=== PATIENT | male | born 1935 | race Caucasian/White ===

== ENCOUNTER 2019-01-04 14:21 | Emergency (ER) | payer OTHER ==
[2019-01-04 15:20] LABS: Absolute Lymphocytes (CBC) 0.5 K/uL (0.7-4.9); Absolute Monocytes 0.7 K/uL (0.1-1.3); Absolute Neutrophil 2.8 K/uL (1.8-8.0); Basophils % 1.2 % (0-1.3); Eosinophils % 3.7 % (0-4.4); Hematocrit 31.4 % (39.6-49.0); Lymphocytes % 12.9 % (15.3-44.8); MPV 7.6 fL (7.6-11.3); Monocytes % 15.7 % (3.3-12.3); RBC Red Blood Cell Count 3.19 M/uL (4.33-5.43)
[2019-01-04 15:33] LABS: BUN Blood Urea Nitrogen 29 mg/dL (7-18); Bicarbonate 26 mmol/L (21-32); Glucose Level 91 mg/dL (74-106); NT PRO-BNP 598 pg/mL (<450); Potassium 4.2 mmol/L (3.5-5.1); Sodium Level 141 mmol/L (136-145); Troponin (Emerg Dept Use Only) < 0.02 ng/mL (0.0-0.045)
--- NOTE | 2019-01-04 15:34 | RAD REPORT ---
EXAM DESCRIPTION: [place] Single View01/04/2019 3:20 pm CLINICAL HISTORY: Shortness of breath COMPARISON: 2013 FINDINGS: Haziness of the left base is unchanged and likely is chronic. Lungs appear clear of acute infiltrate. The heart is borderline enlarged IMPRESSION: No acute abnormalities displayed
--- NOTE | 2019-01-04 15:57 | RAD REPORT ---
EXAM DESCRIPTION: CT - Head Brain Wo Cont - 01/04/2019 3:22 pm CLINICAL HISTORY: Headache COMPARISON: 2017 TECHNIQUE: Computed axial tomography of the head was obtained. IV contrast was not requested. All CT scans are performed using dose optimization technique as appropriate and may include automated exposure control or mA/KV adjustment according to patient size. FINDINGS: An intracranial bleed is not seen . The ventricles are normal in caliber. No extra-axial fluid collection is noted. Fluid within the sinuses/ mastoids is not seen. IMPRESSION: No acute intracranial abnormality is seen. If patient's symptoms persist MRI of the bra in would be recommended.
[2019-01-04] MEDS ORDERED: levoFLOXacin 500 MG TAB ONE (17:13)
--- NOTE | 2019-01-04 17:14 | EKG ---
Test Date: 2019-01-04 Test Time: 14:54:49 Radio News Writer: AG/S MEASUREMENT RESULTS: Intervals: Rate: 68 NV: 152 QRSD: 142 QT: 446 QTc: 474 [place]: P: 24 NV: 152 QRS: -28 T: 52 INTERPRETIVE STATEMENTS: Normal sinus rhythm Right bundle branch block Abnormal ECG Compared to ECG 09/18/2017 08:05:55 No significant changes Electronically Signed On 01-04-19 17:12:51 CDT by Jon Graves
--- NOTE | 2019-01-04 17:18 | ER ---
Nurse's Notes [facility] Name: Paul Iglesias Age: 83 yrs Sex: Male : 1935 Arrival Date: 01/04/2019 Time: 14:22 Bed 23 Private MD: Diagnosis: Near syncope;Bronchitis, not specified as acute or chronic;Dehydration Presentation: 01/04 14:26 Presenting complaint: Patient states: "I drank a big thing of tea before going outside and it turned my whole body hot and my head hot and I can't even see straight. I feel weak and I might pass out" Reports being sick the past week. Transition of care: patient was not received from another setting of care. Onset of symptoms was January 04, 2019. Care prior to arrival: None. 14:26 Method Of Arrival: Wheelchair sv 14:26 Acuity: HERO 3 sv 14:43 Risk Assessment: Do you want to hurt yourself or someone else? Patient reports no ca1 desire to harm self or others. Initial Sepsis Screen: Does the patient meet any 2 criteria? No. Patient's initial sepsis screen is negative. Does the patient have a suspected source of infection? No. Patient's initial sepsis screen is negative. Triage Assessment: 14:43 General: Appears in no apparent distress. comfortable, Behavior is calm, cooperative, ca1 appropriate for age. Historical: - Allergies: 14:27 No Known Drug Allergies; sv - PMHx: 14:27 Anxiety; High Cholesterol; Hypertension; Hypothyroidism; sv - PSHx: 14:27 Appendectomy; spinal surgery "i had 13 spurs removed"; sv - Immunization history:: Flu vaccine is up to date. - Social history:: Smoking status: Patient/guardian denies using tobacco. - Ebola Screening: : No symptoms or risks identified at this time. - Family history:: not pertinent. - Hospitalizations: : No recent hospitalization is reported. Screenin:39 Abuse screen: Denies threats or abuse. Denies injuries from another. Nutritional ca1 screening: No deficits noted. Tuberculosis screening: No symptoms or risk factors identified. Fall Risk Ambulatory Aid- Crutches/Cane/Walker (15 pts). Assessment: 14:39 General: Appears in no apparent distress. comfortable, Behavior is calm, cooperative, ca1 appropriate for age. General: Reports feeling ill for for the past week. Pain: Denies pain. Neuro: Level of Consciousness is awake, alert, obeys commands, Oriented to person, place, time, situation, Career Specialist are equal bilaterally Moves all extremities. Gait is unsteady, Speech is normal, Facial symmetry appears normal, Pupils are PERRLA, Reports dizziness, since 3o minutes ago. Cardiovascular: Heart tones S1 S2 present Capillary refill < 3 seconds Patient's skin is warm and dry. Respiratory: Reports cough that is productive, since a week ago Airway is patent Respiratory effort is even, unlabored, Respiratory pattern is regular, symmetrical, Breath sounds are clear bilaterally. GI: Abdomen is round non-distended, Bowel sounds present X 4 quads. Abd is soft and non tender X 4 quads. : No deficits noted. No signs and/or symptoms were reported regarding the genitourinary system. EENT: Reports nasal congestion nasal discharge that is watery since since a week ago. Derm: Skin is intact, is healthy with good turgor, Skin is pink, warm \\T\\ dry. Musculoskeletal: Circulation, motion, and sensation intact. Capillary refill < 3 seconds. 15:54 Reassessment: Patient appears in no apparent distress at this time. Patient and/or ca1 family updated on plan of care and expected duration. Pain level reassessed. Patient is alert, oriented x 3, equal unlabored respirations, skin warm/dry/pink. 16:41 Reassessment: Patient appears in no apparent distress at this time. Patient and/or ca1 family updated on plan of care and expected duration. Pain level reassessed. Patient is alert, oriented x 3, equal unlabored respirations, skin warm/dry/pink. 16:50 Reassessment: Dr. Mcginnis at bedside. ca1 17:14 Reassessment: Patient appears in no apparent distress at this time. Patient is alert, ca1 oriented x 3, equal unlabored respirations, skin warm/dry/pink. Vital Signs: 14:27 BP 132 / 55; Pulse 76; Resp 24; Temp 97.8(O); Pulse Ox 98% ; Weight 109.77 kg; Height 6 sv ft. 0 in. (182.88 cm); Pain 0/10; 15:35 BP 121 / 67; Pulse 71; Resp 21 S; Pulse Ox 100% on 2 lpm NC; ca1 16:41 BP 121 / 63; Pulse 55; Resp 16 S; Pulse Ox 100% on 2 lpm NC; ca1 17:14 BP 128 / 63; Pulse 53; Resp 19; Pulse Ox 100% on R/A; ca1 14:27 Body Mass Index 32.82 (109.77 kg, 182.88 cm) sv ED Course: 14:22 Patient arrived in ED. tw3 14:27 Triage completed. sv 14:28 Arm band placed on. sv 14:32 Carla Garrison RN is Primary Nurse. ca1 14:39 Patient has correct armband on for positive identification. Placed in gown. Bed in low ca1 position. Call light in reach. Side rails up X 1. radiological technologist on. Pulse ox on. NIBP on. Warm blanket given. 14:45 Hari Mcginnis MD is Attending Physician. rn 15:03 Inserted saline lock: 20 gauge in right antecubital area, using aseptic technique. ca1 Blood collected. 15:16 X-ray completed. Portable x-ray completed in exam room. Patient tolerated procedure mh1 well. 15:17 XRAY Chest (1 view) In Process Unspecified. EDMS 15:22 CT Head Brain wo Cont In Process Unspecified. EDMS 15:43 EKG done, by health and safety technician. reviewed by Hari Mcginnis MD. sm3 17:35 No provider procedures requiring assistance completed. IV discontinued, intact, ca1 bleeding controlled, No redness/swelling at site. Pressure dressing applied. Administered Medications: 17:03 Drug: LevaQUIN 500 mg Route: PO; ca1 17:30 Follow up: Response: No adverse reaction ca1 Outcome: 17:17 Discharge ordered by MD. rn 17:35 Discharged to home via wheelchair, with significant other. ca1 17:35 Condition: stable 17:35 Discharge instructions given to patient, family, Instructed on discharge instructions, follow up and referral plans. medication usage, Demonstrated understanding of instructions, follow-up care, medications, Prescriptions given X 4. 17:35 Patient left the ED. ca1 Signatures: Dispatcher [employer] EDMS Jayleen Rudd RN RN BillyUrsula 1 Hari Mcginnis MD MD rn Wade, Tia tw3 Eliane Tamez sm3 Carla Garrison RN RN ca1 Corrections: (The following items were deleted from the chart) 14:28 14:26 Presenting complaint: Patient states: "I drank a big thing of tea before going sv outside and it turned my whole body hot and my head hot and I can't even see straight." Reports being sick the past week. sv 14:29 14:27 Pulse 76bpm; Resp 24bpm; Pulse Ox 98%; Temp 97.8F Oral; 109.77 kg; Height 6 ft. 0 sv in.; BMI: 32.8; Pain 0/10; sv
--- NOTE | 2019-01-04 17:18 | EDPHYS ---
Physician Documentation [facility] Name: Paul Iglesias Age: 83 yrs Sex: Male : 1935 Arrival Date: 01/04/2019 Time: 14:22 Bed 23 Private MD: ED Physician Hari Mcginnis HPI: 01/04 17:11 This 83 yrs old Male presents to ER via Wheelchair with complaints of rn Dizziness. 17:11 The patient presents with dizziness, generalized weakness, lightheadedness. Onset: The rn symptoms/episode began/occurred just prior to arrival. Context: occurred at home. Modifying factors: The symptoms are alleviated by lying down, the symptoms are aggravated by nothing. Severity of symptoms: At their worst the symptoms were moderate in the emergency department the symptoms have improved. The patient has experienced a previous episode. Reports drinking a large cup of iced tea prior to arrival, states almost immediately after drinking teat got lightheaded, felt like was going to pass out, sat down and got better after a few minutes. Reports still alittle short of breath. States has a cough and congestion that he got from family member, no known asthma or chronic lung issues, no hemoptysis, no chest pain. No abd pain/vomiting/diarrhea. . Historical: - Allergies: 14:27 No Known Drug Allergies; sv - PMHx: 14:27 Anxiety; High Cholesterol; Hypertension; Hypothyroidism; sv - PSHx: 14:27 Appendectomy; spinal surgery "i had 13 spurs removed"; sv - Immunization history:: Flu vaccine is up to date. - Social history:: Smoking status: Patient/guardian denies using tobacco. - Ebola Screening: : No symptoms or risks identified at this time. - Family history:: not pertinent. - Hospitalizations: : No recent hospitalization is reported. ROS: 17:11 Constitutional: Negative for fever, chills, and weight loss, Eyes: Negative for injury, rn pain, redness, and discharge, Neck: Negative for injury, pain, and swelling, Cardiovascular: Negative for chest pain, palpitations, and edema, Respiratory: + sob and cough Abdomen/GI: Negative for abdominal pain, nausea, vomiting, diarrhea, and constipation, MS/Extremity: Negative for injury and deformity, Skin: Negative for injury, rash, and discoloration, Neuro: Negative for headache, numbness, tingling, and seizure. Exam: 17:11 Constitutional: This is a well developed, well nourished patient who is awake, alert, rn appears anxious and tachypneic Head/Face: Normocephalic, atraumatic. ENT: MMM, no stridor Neck: Trachea midline, no thyromegaly or masses palpated, and no cervical lymphadenopathy. Supple, full range of motion without nuchal rigidity, or vertebral point tenderness. No Meningismus. Cardiovascular: regular, no murmur Respiratory: + mild tachypnea, no retractions, mild wheezing Abdomen/GI: soft, non-tender MS/ Extremity: Pulses equal, no cyanosis. Neurovascular intact. Full, normal range of motion. Equal circumference. Neuro: Awake and alert, GCS 15, oriented to person, place, time, and situation. Cranial nerves II-XII grossly intact. Motor strength 5/5 in bilateral upper ext, 4/5 bilateral lower ext Sensory grossly intact. Vital Signs: 14:27 BP 132 / 55; Pulse 76; Resp 24; Temp 97.8(O); Pulse Ox 98% ; Weight 109.77 kg; Height 6 sv ft. 0 in. (182.88 cm); Pain 0/10; 15:35 BP 121 / 67; Pulse 71; Resp 21 S; Pulse Ox 100% on 2 lpm NC; ca1 16:41 BP 121 / 63; Pulse 55; Resp 16 S; Pulse Ox 100% on 2 lpm NC; ca1 17:14 BP 128 / 63; Pulse 53; Resp 19; Pulse Ox 100% on R/A; ca1 14:27 Body Mass Index 32.82 (109.77 kg, 182.88 cm) sv MDM: 14:45 Patient medically screened. rn 17:11 Differential diagnosis: cardiac arrhythmia, generalized weakness, hyperventilation, rn idiopathic dizziness, near-syncope. Data reviewed: vital signs, nurses notes, lab test result(s), EKG, radiologic studies, plain films, and as a result, I will discharge patient. Counseling: I had a detailed discussion with the patient and/or guardian regarding: the historical points, exam findings, and any diagnostic results supporting the discharge/admit diagnosis, lab results, radiology results, the need for outpatient follow up, to return to the emergency department if symptoms worsen or persist or if there are any questions or concerns that arise at home. Response to treatment: the patient's symptoms have markedly improved after treatment, and as a result, I will discharge patient. ED course: Spoke with patient and , most likely viral infection/viral bronchitis given negative bloodwork and cxr. Offered overnight observation given his presentation, patient reports feels much better and back to baseline, confirms. He wants to go home and promises to return if worsens. . 01/04 14:55 Order name: CBC with Diff; Complete Time: 15:49 rn 01/04 14:55 Order name: Basic Metabolic Panel; Complete Time: 15:40 rn 01/04 14:55 Order name: CT Head Brain wo Cont; Complete Time: 16:03 rn 01/04 14:55 Order name: Troponin (emerg Dept Use Only); Complete Time: 15:40 rn 01/04 14:55 Order name: N-Terminal Pro-brain Natriuretic Peptide; Complete Time: 15:40 rn 01/04 14:55 Order name: XRAY Chest (1 view); Complete Time: 15:40 rn 01/04 14:55 Order name: IV Start; Complete Time: 15:04 rn 01/04 14:55 Order name: EKG; Complete Time: 14:56 rn 01/04 14:55 Order name: EKG - Nurse/Tech; Complete Time: 15:04 rn Administered Medications: 17:03 Drug: LevaQUIN 500 mg Route: PO; ca1 17:30 Follow up: Response: No adverse reaction ca1 Disposition: 01/04/19 17:17 Discharged to Home. Impression: Near syncope, Bronchitis, not specified as acute or chronic, Dehydration. - Condition is Stable. - Discharge Instructions: Upper Respiratory Infection, Adult, Cough, Adult. - Prescriptions for Levaquin 500 mg Oral Tablet - take 1 tablet by ORAL route once daily for 7 days; 7 tablet. Prednisone 20 mg Oral Tablet - take 3 tablet by ORAL route once daily for 5 days; 15 tablet. Albuterol Sulfate 90 mcg/actuation - inhale 1-2 puff by INHALATION route every 4-6 hours; 1 Inhaler. Guaifenesin AC 10- 100 mg/5 mL Oral Liquid - take 10 milliliter by ORAL route every 4 hours As needed; 240 milliliter. - Medication Reconciliation Form, Thank You Letter, Antibiotic Education, Prescription Opioid Use form. - Follow up: Private Physician; When: 1 - 2 days; Reason: Recheck today's complaints, Re-evaluation by your physician. - Problem is new. - Symptoms have improved. Signatures: Dispatcher [employer] Jayleen Mcbride RN RN Hari Humphries MD MD rn Acob, KEHINDE Aguirre RN ca1 Corrections: (The following items were deleted from the chart) 17:35 17:17 01/04/2019 17:17 Discharged to Home. Impression: Near syncope; Bronchitis, not ca1 specified as acute or chronic; Dehydration. Condition is Stable. Forms are Medication Reconciliation Form, Thank You Letter, Antibiotic Education, Prescription Opioid Use. Follow up: Private Physician; When: 1 - 2 days; Reason: Recheck today's complaints, Re-evaluation by your physician. Problem is new. Symptoms have improved. rn
[2019-01-04 17:40] VITALS: TEMP 97.8
[2019-01-04 17:41] VITALS: O2SAT 100
[2019-01-04 17:44] VITALS: BP 128/63
== END 2019-01-04 17:35 | disposition home or self-care (01) ==
LOC: ER 14:21
DX: J40 Bronchitis, not specified as acute or chronic (principal); E86.0 Dehydration; I10 Essential (primary) hypertension
CPT/HCPCS: 36415; 70450; 71045; 80048; 83880; 84484; 85025; 93005; 99285

== ENCOUNTER 2019-01-05 11:53 | Observation (INO) | payer OTHER ==
[2019-01-05 13:38] LABS: Absolute Lymphocytes (CBC) 0.6 K/uL (0.7-4.9); Absolute Monocytes 0.6 K/uL (0.1-1.3); Absolute Neutrophil 3.3 K/uL (1.8-8.0); Basophils % 0.7 % (0-1.3); Eosinophils % 1.1 % (0-4.4); Hematocrit 33.1 % (39.6-49.0); Lymphocytes % 13.7 % (15.3-44.8); MPV 7.7 fL (7.6-11.3); Monocytes % 13.8 % (3.3-12.3); RBC Red Blood Cell Count 3.37 M/uL (4.33-5.43)
[2019-01-05 13:42] LABS: Protime INR 2.67
[2019-01-05 13:57] LABS: ALT/SGPT 23 U/L (12-78); AST/SGOT 20 U/L (15-37); Albumin 3.6 g/dL (3.4-5.0); Alkaline Phosphatase 107 U/L (45-117); BUN Blood Urea Nitrogen 32 mg/dL (7-18); Bicarbonate 21 mmol/L (21-32); Bilirubin Direct 0.3 mg/dL (0-0.2); Bilirubin Total 0.7 mg/dL (0.2-1.0); Glucose Level 85 mg/dL (74-106); Magnesium 2.1 mg/dL (1.8-2.4); NT PRO-BNP 782 pg/mL (<450); Potassium 4.3 mmol/L (3.5-5.1); Protein, Total 7.5 g/dL (6.4-8.2); Sodium Level 142 mmol/L (136-145); Troponin (Emerg Dept Use Only) < 0.02 ng/mL (0.0-0.045)
[2019-01-05] MEDS ORDERED: KETOROLAC 30 MG/ML INJ ONE (14:39)
[2019-01-05] MEDS ORDERED: MECLIZINE HCL 12.5 MG TAB ONE (14:41)
--- NOTE | 2019-01-05 15:14 | RAD REPORT ---
EXAM DESCRIPTION: RAD - Chest Single View - 01/05/2019 3:00 pm CLINICAL HISTORY: Dyspnea, shortness of breath COMPARISON: January 04 TECHNIQUE: AP portable chest image was obtained 1444 hours . FINDINGS: No focal lung parenchymal process. Interstitial markings are similar to comparison. Heart and vasculature are normal. No measurable pleural effusion and no pneumothorax. No acute bony abnorma lity seen. No acute aortic findings suspected. IMPRESSION: No acute cardiopulmonary process. No significant interval change.
--- NOTE | 2019-01-05 16:26 | EDPHYS ---
Physician Documentation [facility] Name: Paul Iglesias Age: 83 yrs Sex: Male : 1935 Arrival Date: 01/05/2019 Time: 11:55 Bed 23 Private MD: ED Physician Martin Singh HPI: 01/05 18:39 This 83 yrs old Male presents to ER via Ambulatory with complaints of kdr Shortness Of Breath, Dizziness. 18:39 The patient was seen here yesterday for similar s/s. He states that he has been very kdr weak, SOB and dizziness. His s/s are not improving. Today he is feeling more weak. The SOB and dizziness are unchanged. Onset: The symptoms/episode began/occurred gradually, Last few days. Severity of symptoms: At their worst the symptoms were moderate in the emergency department the symptoms are unchanged. The patient has experienced similar episodes in the past, a few times. The patient has been recently seen at the [facility] Emergency Department, yesterday, Offered admission but refused yesterday. Historical: - Allergies: 12:10 No Known Allergies; sg - Home Meds: 12:34 warfarin 2 mg Oral tab [Active]; atorvastatin 10 mg Oral tab 1 tab once daily [Active]; tw2 aspirin 81 mg Oral TbEC 1 tab once daily [Active]; finasteride 5 mg Oral tab 2 tab once daily [Active]; fluticasone 50 mcg/actuation nasal spsn 1 spray 2 times per day [Active]; folic acid 1 mg Oral tab 1 tab once daily [Active]; levothyroxine 50 mcg tab 1 tab once daily [Active]; lisinopril 40 mg Oral tab 1 tab once daily [Active]; Methotrexate (Anti-Rheumatic) Oral 2.5 mg [Active]; prednisone 5 mg Oral tab [Active]; tamsulosin 0.4 mg Oral cp24 2 caps once daily [Active]; - PMHx: 12:10 Anxiety; High Cholesterol; Hypertension; Hypothyroidism; sg - PSHx: 12:10 Appendectomy; spinal surgery "i had 13 spurs removed"; sg - Immunization history:: Adult Immunizations up to date. - Social history:: Smoking status: Patient/guardian denies using tobacco. - Ebola Screening: : Patient negative for fever greater than or equal to 101.5 degrees Fahrenheit, and additional compatible Ebola Virus Disease symptoms Patient denies exposure to infectious person Patient denies travel to an Ebola-affected area in the 21 days before illness onset No symptoms or risks identified at this time. ROS: 18:39 Constitutional: Negative for fever, chills, and weight loss, Eyes: Negative for injury, kdr pain, redness, and discharge, Neck: Negative for injury, pain, and swelling, Cardiovascular: Negative for chest pain, palpitations, and edema, Abdomen/GI: Negative for abdominal pain, nausea, vomiting, diarrhea, and constipation, Back: Negative for injury and pain, : Negative for injury, bleeding, discharge, and swelling, MS/Extremity: Negative for injury and deformity, Skin: Negative for injury, rash, and discoloration, Neuro: Negative for headache, weakness, numbness, tingling, and seizure activity. Psych: Negative for depression, anxiety, suicide ideation, homicidal ideation, and hallucinations, Allergy/Immunology: Negative for hives, rash, and allergies, Endocrine: Negative for neck swelling, polydipsia, polyuria, polyphagia, and marked weight changes, Hematologic/Lymphatic: Negative for swollen nodes, abnormal bleeding, and unusual bruising. 18:39 Respiratory: Positive for cough, with no reported sputum, dyspnea on exertion, shortness of breath, Negative for hemoptysis, orthopnea, pleurisy. Exam: 18:39 Constitutional: This is a well developed, well nourished patient who is awake, alert, kdr and in no acute distress. Head/Face: Normocephalic, atraumatic. Eyes: Pupils equal round and reactive to light, extra-ocular motions intact. Lids and lashes normal. Conjunctiva and sclera are non-icteric and not injected. Cornea within normal limits. Periorbital areas with no swelling, redness, or edema. Neck: Trachea midline, no thyromegaly or masses palpated, and no cervical lymphadenopathy. Supple, full range of motion without nuchal rigidity, or vertebral point tenderness. No Meningismus. Chest/axilla: Normal chest wall appearance and motion. Nontender with no deformity. No lesions are appreciated. Cardiovascular: Regular rate and rhythm with a normal S1 and S2. No gallops, murmurs, or rubs. Normal PMI, no JVD. No pulse deficits. Abdomen/GI: Soft, non-tender, with normal bowel sounds. No distension or tympany. No guarding or rebound. No evidence of tenderness throughout. Back: No spinal tenderness. No costovertebral tenderness. Full range of motion. Skin: Warm, dry with normal turgor. Normal color with no rashes, no lesions, and no evidence of cellulitis. MS/ Extremity: Pulses equal, no cyanosis. Neurovascular intact. Full, normal range of motion. Neuro: Awake and alert, GCS 15, oriented to person, place, time, and situation. Cranial nerves II-XII grossly intact. Motor strength 5/5 in all extremities. Sensory grossly intact. Cerebellar exam normal. Normal gait. Psych: Awake, alert, with orientation to person, place and time. Behavior, mood, and affect are within normal limits. 18:39 Respiratory: the patient does not display signs of respiratory distress, Respirations: normal, Breath sounds: wheezing: that is mild, is scattered, is heard diffusely. Vital Signs: 12:06 BP 125 / 65; Pulse 97; Resp 20; Pulse Ox 100% on R/A; Pain 8/10; sg 12:30 Temp 97.7(O); tw2 13:12 BP 136 / 71; Pulse 64; Resp 17; Pulse Ox 99% on R/A; tw2 14:11 BP 139 / 65; Pulse 77; Resp 17; Pulse Ox 97% on R/A; tw2 15:11 BP 128 / 58; Pulse 62; Resp 17; Pulse Ox 97% on R/A; tw2 16:08 BP 123 / 61; Pulse 60; Resp 17; Pulse Ox 97% on R/A; tw2 MDM: 16:25 Patient medically screened. kdr 18:39 Data reviewed: vital signs, nurses notes, lab test result(s), radiologic studies. kdr Counseling: I had a detailed discussion with the patient and/or guardian regarding: the historical points, exam findings, and any diagnostic results supporting the discharge/admit diagnosis, lab results, radiology results, the need for further work-up and treatment in the hospital. 01/05 12:55 Order name: Basic Metabolic Panel; Complete Time: 14:05 kdr 04 12:55 Order name: CBC with Diff kdr 01/05 12:55 Order name: LFT's; Complete Time: 14:05 kdr 04 12:55 Order name: Magnesium; Complete Time: 14:05 kdr 01/05 12:55 Order name: NT PRO-BNP; Complete Time: 14:05 kdr 01/05 12:55 Order name: PT-INR; Complete Time: 14:05 kdr 01/05 12:55 Order name: Troponin (emerg Dept Use Only); Complete Time: 14:05 kdr 01/05 12:55 Order name: XRAY Chest (1 view); Complete Time: 16:12 kdr 01/05 12:55 Order name: EKG; Complete Time: 12:56 kdr 01/05 12:55 Order name: Cardiac monitoring; Complete Time: 13:10 kdr 01/05 16:45 Order name: Influenza Screen (A EDNH 01/05 17:13 Order name: Diet Regular; Complete Time: 17:13 eb 01/05 12:55 Order name: EKG - Nurse/Tech; Complete Time: 13:17 kdr 01/05 12:55 Order name: IV Saline Lock; Complete Time: 13:38 kdr 01/05 12:55 Order name: Labs collected and sent; Complete Time: 13:38 kdr 01/05 12:55 Order name: O2 Per Protocol; Complete Time: 13:10 kdr 01/05 12:55 Order name: O2 Sat Monitoring; Complete Time: 13:17 kdr Administered Medications: 14:32 Drug: Meclizine 25 mg Route: PO; tw2 15:19 Follow up: Response: No adverse reaction tw2 14:32 Drug: TORadol - Ketorolac 15 mg Route: IVP; Site: left antecubital; tw2 15:19 Follow up: Response: No adverse reaction tw2 Disposition: 01/05/19 16:25 Hospitalization ordered by Julia Eric for Observation. Preliminary diagnosis is Weakness, Shortness of Breath, Dizziness. - Bed requested for Telemetry/MedSurg (observation). - Status is Observation. tw2 - Condition is Fair. - Problem is an ongoing problem. - Symptoms are unchanged. UTI on Admission? No Signatures: Dispatcher [employer] EDAisha Maza RN RN dw Gay, Steven, RN RN sg Martin Singh MD MD kdr Kourtney Michel RN RN tw2 Corrections: (The following items were deleted from the chart) 17:01 16:25 Hospitalization Ordered by Julia Eric MD for Observation. Preliminary diagnosis dw is Weakness, Shortness of Breath, Dizziness. Bed requested for Telemetry/MedSurg (observation). Status is Observation. Condition is Fair. Problem is an ongoing problem. Symptoms are unchanged. UTI on Admission? No. kdr 17:24 17:01 01/05/2019 16:25 Hospitalization Ordered by Julia Eric MD for Observation. dw Preliminary diagnosis is Weakness, Shortness of Breath, Dizziness. Bed requested for Telemetry/MedSurg (observation). Status is Observation. Condition is Fair. Problem is an ongoing problem. Symptoms are unchanged. UTI on Admission? No. dw 17:52 17:24 01/05/2019 16:25 Hospitalization Ordered by Julia Eric MD for Observation. tw2 Preliminary diagnosis is Weakness, Shortness of Breath, Dizziness. Bed requested for Telemetry/MedSurg (observation). Status is Observation. Condition is Fair. Problem is an ongoing problem. Symptoms are unchanged. UTI on Admission? No. dw
--- NOTE | 2019-01-05 16:26 | ER ---
Nurse's Notes [facility] Name: Paul Iglesias Age: 83 yrs Sex: Male : 1935 Arrival Date: 01/05/2019 Time: 11:55 Bed 23 Private MD: Diagnosis: Weakness, Shortness of Breath, Dizziness Presentation: 01/05 12:10 Presenting complaint: Patient states: I was seen here yesterday for dizziness and for sg shortness of breath and told me to come back today if I felt like I was getting worse, I feel dizzy still and I feel a little bit short of breath. Transition of care: patient was not received from another setting of care. Onset of symptoms was January 05, 2019. Risk Assessment: Do you want to hurt yourself or someone else? Patient reports no desire to harm self or others. Initial Sepsis Screen: Does the patient meet any 2 criteria? No. Patient's initial sepsis screen is negative. Does the patient have a suspected source of infection? No. Patient's initial sepsis screen is negative. Care prior to arrival: None. 12:10 Method Of Arrival: Ambulatory sg 12:10 Acuity: HERO 3 sg Triage Assessment: 12:33 General: Appears in no apparent distress. Behavior is anxious, fussy. Pain: Denies tw2 pain. Neuro: Reports dizziness. Respiratory: Reports shortness of breath Onset: The symptoms/episode began/occurred yesterday, the patient has mild shortness of breath. Historical: - Allergies: 12:10 No Known Allergies; sg - Home Meds: 12:34 warfarin 2 mg Oral tab [Active]; atorvastatin 10 mg Oral tab 1 tab once daily [Active]; tw2 aspirin 81 mg Oral TbEC 1 tab once daily [Active]; finasteride 5 mg Oral tab 2 tab once daily [Active]; fluticasone 50 mcg/actuation nasal spsn 1 spray 2 times per day [Active]; folic acid 1 mg Oral tab 1 tab once daily [Active]; levothyroxine 50 mcg tab 1 tab once daily [Active]; lisinopril 40 mg Oral tab 1 tab once daily [Active]; Methotrexate (Anti-Rheumatic) Oral 2.5 mg [Active]; prednisone 5 mg Oral tab [Active]; tamsulosin 0.4 mg Oral cp24 2 caps once daily [Active]; - PMHx: 12:10 Anxiety; High Cholesterol; Hypertension; Hypothyroidism; sg - PSHx: 12:10 Appendectomy; spinal surgery "i had 13 spurs removed"; sg - Immunization history:: Adult Immunizations up to date. - Social history:: Smoking status: Patient/guardian denies using tobacco. - Ebola Screening: : Patient negative for fever greater than or equal to 101.5 degrees Fahrenheit, and additional compatible Ebola Virus Disease symptoms Patient denies exposure to infectious person Patient denies travel to an Ebola-affected area in the 21 days before illness onset No symptoms or risks identified at this time. Screenin:32 Abuse screen: Denies threats or abuse. Nutritional screening: No deficits noted. tw2 Tuberculosis screening: No symptoms or risk factors identified. Fall Risk Secondary diagnosis (15 points) impaired mobility. Assessment: 12:25 General: Appears in no apparent distress. obese, Behavior is fussy. Neuro: Level of tw2 Consciousness is awake, alert, obeys commands, Oriented to person, place, time, situation. Cardiovascular: Heart tones S1 S2 Capillary refill < 3 seconds Patient's skin is warm and dry. Rhythm is regular. Respiratory: Reports shortness of breath at rest on exertion cough that is Breath sounds are clear bilaterally. GI: No signs and/or symptoms were reported involving the gastrointestinal system. Abdomen is round non-distended, obese, Bowel sounds present X 4 quads. : No signs and/or symptoms were reported regarding the genitourinary system. Derm: No signs and/or symptoms reported regarding the dermatologic system. Skin is dry, Skin temperature is warm. Musculoskeletal: Range of motion: intact in all extremities. 12:32 Respiratory: Airway is patent Respiratory effort is even, unlabored. tw2 13:12 Reassessment: Patient appears in no apparent distress at this time. No changes from tw2 previously documented assessment. Patient and/or family updated on plan of care and expected duration. Pain level reassessed. Patient is alert, oriented x 3, equal unlabored respirations, skin warm/dry/pink. pt states "i havent seen a doctor and i have been here an hour and a half", provider notified. 14:11 Reassessment: Patient appears in no apparent distress at this time. No changes from tw2 previously documented assessment. Patient and/or family updated on plan of care and expected duration. Pain level reassessed. Patient is alert, oriented x 3, equal unlabored respirations, skin warm/dry/pink. 15:00 Reassessment: pt placed in recliner chair, on monitor, pt states he feels more iw comfortable in chair, at bedside. 15:11 Reassessment: Patient appears in no apparent distress at this time. Patient and/or tw2 family updated on plan of care and expected duration. Pain level reassessed. Patient is alert, oriented x 3, equal unlabored respirations, skin warm/dry/pink. 16:08 Reassessment: Patient appears in no apparent distress at this time. No changes from tw2 previously documented assessment. Patient and/or family updated on plan of care and expected duration. Pain level reassessed. Patient is alert, oriented x 3, equal unlabored respirations, skin warm/dry/pink. Vital Signs: 12:06 BP 125 / 65; Pulse 97; Resp 20; Pulse Ox 100% on R/A; Pain 8/10; sg 12:30 Temp 97.7(O); tw2 13:12 BP 136 / 71; Pulse 64; Resp 17; Pulse Ox 99% on R/A; tw2 14:11 BP 139 / 65; Pulse 77; Resp 17; Pulse Ox 97% on R/A; tw2 15:11 BP 128 / 58; Pulse 62; Resp 17; Pulse Ox 97% on R/A; tw2 16:08 BP 123 / 61; Pulse 60; Resp 17; Pulse Ox 97% on R/A; tw2 ED Course: 11:55 Patient arrived in ED. rg4 12:11 Triage completed. sg 12:11 Arm band placed on. sg 12:29 Kourtney Michel, RN is Primary Nurse. tw2 12:32 Bed in low position. Call light in reach. Side rails up X 1. Adult w/ patient. Cardiac tw2 monitor on. Pulse ox on. NIBP on. Warm blanket given. Pillow given. 12:53 Martin Singh MD is Attending Physician. kdr 13:20 EKG done, by sewing pattern layout technician. reviewed by Martin Singh MD. dt2 13:39 Initial lab(s) drawn, by va, sent to lab. Inserted saline lock: 20 gauge in left lt1 antecubital area, using aseptic technique. 14:11 Awaiting for x-ray. tw2 14:38 Awaiting radiology results. tw2 15:01 XRAY Chest (1 view) In Process Unspecified. EDMS 16:24 Julia Eric MD is Hospitalizing Provider. kdr 17:04 Awaiting: attempted to call report, was told KEHINDE Perez would have to call me back. tw2 17:05 No provider procedures requiring assistance completed. Patient admitted, IV remains in tw2 place. Administered Medications: 14:32 Drug: Meclizine 25 mg Route: PO; tw2 15:19 Follow up: Response: No adverse reaction tw2 14:32 Drug: TORadol - Ketorolac 15 mg Route: IVP; Site: left antecubital; tw2 15:19 Follow up: Response: No adverse reaction tw2 Outcome: 16:25 Decision to Hospitalize by Provider. kdr 17:27 Admitted to Med/surg accompanied by tech, via wheelchair, room 404, Report called to tw2 KEHINDE Perez 17:27 Condition: stable 17:27 Instructed on the need for admit. 17:52 Patient left the ED. tw2 Signatures: Dispatcher [employer] EDMS Dennis Velázquez RN KEHINDE Martin Singh MD MD kdr Isidra Houser RN RN Kourtney Michel RN RN tw2 Felecia Douglass 4 Lynnette Razo dt2 Paige Lin lt1
[2019-01-05] MEDS ORDERED: ONDANSETRON 4 MG/2 ML VIAL IV PRN (17:29)
--- NOTE | 2019-01-05 18:30 | P.HP ---
Certification for Inpatient Patient admitted to: Observation With expected LOS: <2 Midnights Practitioner: I am a practitioner with admitting privileges, knowledge of patient current condition, hospital course, and medical plan of care. Services: Services provided to patient in accordance with Admission requirements found in Title 42 Section 412.3 of the Code of Federal Regulations Patient History Date of Service: 01/05/19 History of Present Illness: This is a 83 yr old male with a hx of anxiety, HLD, HTN and hypothyroidism admitted for dizziness and shortness of breath. Patient was seen in the ED yesterday for similar symptoms but did not want to stay in the hospital. He was discharged with Levaquin, prednisone, inhalers and guafenicin and with instructions to return if feeling worse. He returns today feeling worse with dizziness. In the ER, his vital signs were stable. His lab work was unremarkable except for creatinine of 2.02. His chest x-ray was without any acute abnormalities and CT was negative for any acute abnormalities. BNP was 782. At the time of my exam, he was alert oriented x3, in no acute distress. He was complaining of occasional dizziness, especially if he walked. Allergies No Known Drug Allergies Allergy (Verified 01/05/19 19:36) Unknown No Known Allergies Allergy (Uncoded 09/18/17 14:10) Unknown Home medications list reviewed: Yes Home Medications: Aspirin Chewable [Aspirin Chewable*] 81 mg PO DAILY 03/13/14 Tamsulosin HCl [Flomax] 2 cap PO DAILY 03/13/14 Warfarin Sodium [Coumadin*] 2 mg PO SEECOM 03/13/14 Finasteride [Proscar*] 2 tab PO DAILY 07/21/14 Warfarin Sodium [Coumadin*] 4 mg PO SEECOM 02/29/16 Sertraline HCl 25 mg PO DAILY 09/18/17 Guaifen W/Codeine Syrup [ROBITUSSIN A-C Syrup*] 10 ml PO Q4HP PRN 01/05/19 Nifedipine [Nifedipine ER] 30 mg PO DAILY 01/05/19 azaTHIOprine [Azathioprine] 50 mg PO DAILY 01/05/19 - Past Medical/Surgical History Diabetic: No -: CAD,ARRHYTMIA -: angina -: hypothyroid -: going blind left eye, [place] -: HTN -: HLD, HTN, Anxiety -: ANGINA PECTORIS -: ANEMIA -: DEPRESSION -: ANXIETY -: SEASONAL ALLERGIES -: PROSTATE PROBLEM -: bone spurs removed from spine (2012) -: appy -: Oral surgery (2012) - Family History Brother -: Cancer Notes: Unspecified type Mother -: Other (see notes) Notes: [place] - Social History Alcohol use: No CD- Drugs: No Caffeine use: Yes Review of Systems 10-point ROS is otherwise unremarkable Physical Examination - Physical Exam General: Alert, In no apparent distress, Oriented x3 HEENT: Atraumatic, PERRLA, Mucous membr. moist/pink, EOMI, Sclerae nonicteric Neck: Supple, 2+ carotid pulse no bruit, No LAD, Without JVD or thyroid abnormality Respiratory: Clear to auscultation bilaterally, Normal air movement Cardiovascular: Regular rate/rhythm, Normal S1 S2 Gastrointestinal: Normal bowel sounds, No tenderness Musculoskeletal: No tenderness Integumentary: No rashes Neurological: Normal gait, Normal speech, Normal strength at 5/5 x4 extr, Normal tone, Normal affect Lymphatics: No axilla or inguinal lymphadenopathy - Studies Laboratory Data (last 24 hrs) 01/05/19 13:28: PT 30.3 H, INR 2.67 01/05/19 13:28: WBC 4.7, Hgb 11.3 L, Hct 33.1 L, Plt Count 146 L 01/05/19 13:28: Sodium 142, Potassium 4.3, BUN 32 H, Creatinine 2.02 H, Glucose 85, Magnesium 2.1, Total Bilirubin 0.7, AST 20, ALT 23, Alkaline Phosphatase 107 Assessment and Plan - Problems (Diagnosis) (1) Dizziness Current Visit: Yes Status: Acute (2) Essential hypertension Onset Date: 09/20/17 Current Visit: No Status: Acute (3) Hyperlipidemia Onset Date: 09/20/17 Current Visit: No Status: Acute (4) Hypothyroidism Onset Date: 09/20/17 Current Visit: No Status: Acute - Plan Admit the patient to floor with tele. Monitor via labs. Meclizine for dizziness. Zofran p.r.n. for nausea vomiting. IV fluids DVT prophylaxis: Lovenox GI prophylaxis: None Diet: Regular Disposition: Pending symptomatic improvement - Advance Directives Does patient have a Living Will: Yes Does patient have a Durable POA for Healthcare: No
[2019-01-05] MEDS: NA CHLORIDE 0.9% 1,000 ML IV SCH (18:41)
[2019-01-05] MEDS: ENOXAPARIN 40 MG/0.4 ML SQ SCH (18:41)
[2019-01-05 19:48] LABS: Anisocytosis 2+; Blood Morphology Comment NOTED (NOT SEEN); Platelet Estimate ADEQ; Poikilocytosis 1+; Teardrop Cell FEW; Urine White Blood Cell Casts OK
[2019-01-05] MEDS ORDERED: GUAIFENESIN/CODEINE 5ML UCUP PO PRN (22:48)
[2019-01-05] MEDS: TEMAZEPAM 15 MG CAP PO PRN (23:27)
[2019-01-05 23:36] VITALS: BMI 31.8
[2019-01-06 00:04] LABS: Urine Appearance CLEAR; Urine Bilirubin NEGATIVE (NEG); Urine Blood 1+ (NEG); Urine Color YELLOW; Urine Glucose NEGATIVE (NEG); Urine Protein 1+ (NEG)
[2019-01-06 00:07] LABS: Urine Microscopic Reflex ORDER UMIC
[2019-01-06 03:08] LABS: Urine Mucus 2+ /HPF (NONE SEEN)
[2019-01-06 03:10] LABS: Urine Bacteria <20 /HPF (NONE SEEN); Urine Culture Reflex Order REFLEXED; Urine RBC <5 /HPF (NONE SEEN)
[2019-01-06] MEDS: NA CHLORIDE 0.9% 1,000 ML IV SCH ×2 (04:57→23:05)
[2019-01-06 07:32] LABS: Absolute Lymphocytes (CBC) 0.9 K/uL (0.7-4.9); Absolute Monocytes 0.5 K/uL (0.1-1.3); Absolute Neutrophil 1.9 K/uL (1.8-8.0); Eosinophils % 3.7 % (0-4.4); Hematocrit 30.1 % (39.6-49.0); Lymphocytes % 25.8 % (15.3-44.8); MPV 7.8 fL (7.6-11.3); Monocytes % 13.6 % (3.3-12.3); RBC Red Blood Cell Count 3.03 M/uL (4.33-5.43)
[2019-01-06 07:38] LABS: Albumin 3.3 g/dL (3.4-5.0); Bilirubin Total 0.5 mg/dL (0.2-1.0); Phosphorus 2.9 mg/dL (2.5-4.9); Potassium 4.4 mmol/L (3.5-5.1); Protein, Total 6.9 g/dL (6.4-8.2)
[2019-01-06] MEDS ORDERED: PNEUMOCOCCAL VACCINE 0.5 ML IMVAC ONE (08:00)
[2019-01-06] MEDS: SERTRALINE HCL 50 MG TAB PO SCH (09:00)
[2019-01-06] MEDS: NIFEDIPINE XL 30 MG TABLET PO SCH (09:00)
[2019-01-06] MEDS: ENOXAPARIN 40 MG/0.4 ML SQ SCH (09:00)
[2019-01-06] MEDS: FINASTERIDE 5 MG TAB PO SCH (09:00)
[2019-01-06] MEDS: TAMSULOSIN 0.4 MG SR CAP PO SCH (09:00)
[2019-01-06] MEDS: ASPIRIN 81 MG CHEWABLE TABLET PO SCH (09:00)
[2019-01-06] MEDS: AZATHIOPRINE 50 MG TABLET PO SCH (09:00)
--- NOTE | 2019-01-06 09:46 | EKG ---
Test Date: 2019-01-05 Test Time: 13:14:55 Inspector [employer] St[employer] Die: MCKENNA/[place] MEASUREMENT RESULTS: Intervals: Rate: 65 W[place]: 158 QRSD: 138 QT: 462 QTc: 480 [place]: P: -12 W[place]: 158 QRS: -30 T: 56 INTERPRETIVE STATEMENTS: Normal sinus rhythm Left axis deviation Right bundle branch block Abnormal ECG Compared to ECG 01/04/2019 14:54:49 Left-axis deviation now present Electronically Signed On 01-06-19 09:43:11 CDT by Isidro Arevalo
[2019-01-06] MEDS ORDERED: WARFARIN SODIUM 2 MG TAB PO SCH (17:00)
[2019-01-06] MEDS: TEMAZEPAM 15 MG CAP PO PRN (21:10)
[2019-01-06] MEDS ORDERED: MECLIZINE HCL 12.5 MG TAB PO ONE (22:13)
--- NOTE | 2019-01-06 22:38 | P.PN ---
Subjective Date of Service: 01/06/19 Patient seen and examined at bedside. and daughter at bedside. Chart reviewed and case discussed with nursing staff. Still complaining of dizziness, though improved from admission. Review of Systems 10-point ROS is otherwise unremarkable Physical Examination - Vital Signs Temperature: 97.6 F Blood Pressure: 152/68 Pulse: 63 Respirations: 16 Pulse Ox (%): 99 - Physical Exam General: Alert, In no apparent distress, Oriented x3 HEENT: Atraumatic, PERRLA, EOMI Neck: Supple, JVD not distended Respiratory: Clear to auscultation bilaterally, Normal air movement Cardiovascular: Regular rate/rhythm, Normal S1 S2 Gastrointestinal: Normal bowel sounds, No tenderness Musculoskeletal: No tenderness Integumentary: No rashes Neurological: Normal speech, Normal tone, Normal affect Lymphatics: No axilla or inguinal lymphadenopathy Assessment And Plan - Plan Symptoms improving. Still complaining of dizziness, improved with meclizine though. Creatinine improving. Possibility of a viral upper respiratory infection. Meclizine for dizziness. Zofran p.r.n. for nausea vomiting. IV fluids DVT prophylaxis: Lovenox GI prophylaxis: None Diet: Regular Disposition: Pending symptomatic improvement. Possible discharge home in the next 24 hr
[2019-01-06 22:47] VITALS: O2SAT 96
[2019-01-07] MEDS: ASPIRIN 81 MG CHEWABLE TABLET PO SCH (08:54)
[2019-01-07] MEDS: SERTRALINE HCL 50 MG TAB PO SCH (08:59)
[2019-01-07] MEDS: FINASTERIDE 5 MG TAB PO SCH (08:59)
[2019-01-07] MEDS: AZATHIOPRINE 50 MG TABLET PO SCH (08:59)
[2019-01-07] MEDS: NIFEDIPINE XL 30 MG TABLET PO SCH (08:59)
[2019-01-07] MEDS: TAMSULOSIN 0.4 MG SR CAP PO SCH (09:00)
[2019-01-07] MEDS: NA CHLORIDE 0.9% 1,000 ML IV SCH (09:56)
--- NOTE | 2019-01-07 11:57 | P.DS ---
Admission Date: 01/05/19 Discharge Date: 01/07/19 Disposition: ROUTINE DISCHARGE Discharge Condition: GOOD - Problems (1) Dizziness Current Visit: Yes Status: Acute (2) Upper respiratory infection Current Visit: Yes Status: Acute Qualifiers: URI type: unspecified viral URI Qualified Code(s): J06.9 - Acute upper respiratory infection, unspecified (3) Chronic kidney disease (CKD) Current Visit: Yes Status: Chronic Qualifiers: Chronic kidney disease stage: stage 3 (moderate) Qualified Code(s): N18.3 - Chronic kidney disease, stage 3 (moderate) (4) Essential hypertension Onset Date: 09/20/17 Current Visit: No Status: Chronic (5) Hyperlipidemia Onset Date: 09/20/17 Current Visit: No Status: Chronic (6) Hypothyroidism Onset Date: 09/20/17 Current Visit: No Status: Chronic (7) Obesity Onset Date: 09/20/17 Current Visit: No Status: Chronic Brief History of Present Illness: This is a 83 yr old male with a hx of anxiety, HLD, HTN and hypothyroidism admitted for dizziness and shortness of breath. Patient was seen in the ED yesterday for similar symptoms but did not want to stay in the hospital. He was discharged with Levaquin, prednisone, inhalers and guafenicin and with instructions to return if feeling worse. He returns today feeling worse with dizziness. In the ER, his vital signs were stable. His lab work was unremarkable except for creatinine of 2.02. His chest x-ray was without any acute abnormalities and CT was negative for any acute abnormalities. BNP was 782. At the time of my exam, he was alert oriented x3, in no acute distress. He was complaining of occasional dizziness, especially if he walked. Hospital Course: Patient admits floor with tele. Was monitored by labs. He was given IV fluids. His orthostatic vital signs were negative. Lab escobedo, his creatinine remains stable. He does have a history of chronic kidney disease, stage III. His symptoms did improve. Prior to discharge, he stated that his dizziness had resolved. he denied any chest pain, shortness of breath, headache, vision changes, speech changes, GI or complaints. His cultures remained negative throughout the stay. He stated that he did not have a primary care physician. Recommended that he does get a primary care physician to follow up with as this would be important down the line. The list of physicians provided to him at discharge. Encouraged patient and family to call physician's office schedule an appointment in the next 2-3 days. He was discharged home in a stable manner. He remained otherwise stable throughout the stay. Vital Signs/Physical Exam: Temp Pulse Resp BP Pulse Ox 97.6 F 63 16 152/68 H 99 01/07/19 11:42 01/07/19 11:42 01/07/19 11:42 01/07/19 11:42 01/07/19 11:42 General: Alert, In no apparent distress, Oriented x3 HEENT: Atraumatic, PERRLA, EOMI Neck: Supple, JVD not distended Respiratory: Clear to auscultation bilaterally, Normal air movement Cardiovascular: Regular rate/rhythm, Normal S1 S2 Gastrointestinal: Normal bowel sounds, No tenderness Musculoskeletal: No tenderness Integumentary: No rashes Neurological: Normal speech, Normal tone, Normal affect Lymphatics: No axilla or inguinal lymphadenopathy Laboratory Data at Discharge: WBC 3.4 K/uL (4.3-10.9) L D 01/06/19 06:40 Hgb 10.2 g/dL (13.6-17.9) L 01/06/19 06:40 Hct 30.1 % (39.6-49.0) L 01/06/19 06:40 Plt Count 121 K/uL (152-406) L 01/06/19 06:40 PT 30.3 SECONDS (9.5-12.5) H 01/05/19 13:28 INR 2.67 01/05/19 13:28 Sodium 143 mmol/L (136-145) 01/06/19 06:40 Potassium 4.4 mmol/L (3.5-5.1) 01/06/19 06:40 BUN 33 mg/dL (7-18) H 01/06/19 06:40 Creatinine 2.05 mg/dL (0.55-1.3) H 01/06/19 06:40 Glucose 92 mg/dL (74-106) 01/06/19 06:40 Phosphorus 2.9 mg/dL (2.5-4.9) 01/06/19 06:40 Magnesium 2.1 mg/dL (1.8-2.4) 01/05/19 13:28 Total Bilirubin 0.5 mg/dL (0.2-1.0) 01/06/19 06:40 AST 25 U/L (15-37) 01/06/19 06:40 ALT 23 U/L (12-78) 01/06/19 06:40 Alkaline Phosphatase 98 U/L (45-117) 01/06/19 06:40 Home Medications: Aspirin Chewable [Aspirin Chewable*] 81 mg PO DAILY 03/13/14 Tamsulosin HCl [Flomax] 2 cap PO DAILY 03/13/14 Warfarin Sodium [Coumadin*] 2 mg PO SEECOM 03/13/14 Finasteride [Proscar*] 2 tab PO DAILY 07/21/14 Warfarin Sodium [Coumadin*] 4 mg PO SEECOM 02/29/16 Sertraline HCl 25 mg PO DAILY 09/18/17 Guaifen W/Codeine Syrup [ROBITUSSIN A-C Syrup*] 10 ml PO Q4HP PRN 01/05/19 Nifedipine [Nifedipine ER] 30 mg PO DAILY 01/05/19 azaTHIOprine [Azathioprine] 50 mg PO DAILY 01/05/19 Meclizine HCl [Antivert*] 12.5 mg PO BID PRN #10 tab 01/07/19 New Medications: Meclizine HCl [Antivert*] 12.5 mg PO BID PRN #10 tab PRN Reason: Dizziness Patient Discharge Instructions: Please follow up with the primary care physician. A list of primary care providers has been given to you. New medications: Meclizine, for dizziness. Please return to the emergency room for worsening symptoms Diet: AHA Activity: Ad parth Time spent managing pt's care (in minutes): 55
[2019-01-07 12:48] LABS: Potassium 4.4 mmol/L (3.5-5.1)
[2019-01-07 13:12] LABS: Absolute Lymphocytes (CBC) 0.8 K/uL (0.7-4.9); Absolute Monocytes 0.5 K/uL (0.1-1.3); Absolute Neutrophil 3.3 K/uL (1.8-8.0); Basophils % 0.8 % (0-1.3); Eosinophils % 2.9 % (0-4.4); Hematocrit 30.7 % (39.6-49.0); MPV 7.9 fL (7.6-11.3); Monocytes % 10.9 % (3.3-12.3); RBC Red Blood Cell Count 3.11 M/uL (4.33-5.43)
[2019-01-07 13:39] VITALS: BP 120/60; TEMP 97
[2019-01-07] MEDS ORDERED: TAMSULOSIN 0.4 MG SR CAP PO SCH (21:00)
== END 2019-01-07 15:09 | disposition home or self-care (01) ==
LOC: ER 11:53 → ERHOLD 16:39 → 4TH 17:29
PROVIDERS: ADMIT Family Medicine; ATTEND Family Medicine
DX: R42 Dizziness and giddiness (principal); J06.9 Acute upper respiratory infection, unspecified; I10 Essential (primary) hypertension; E78.5 Hyperlipidemia, unspecified; E03.9 Hypothyroidism, unspecified; I12.9 Hypertensive chronic kidney disease with stage 1 through stage 4 chronic kidney disease, or unspecified chronic kidney disease; N18.3 Chronic kidney disease, stage 3 (moderate); F41.8 Other specified anxiety disorders; E66.9 Obesity, unspecified; Z68.31 Body mass index [BMI] 31.0-31.9, adult
CPT/HCPCS: 93005; 87088; 85025 ×3; 80048 ×2; 36415 ×3; 83735; 84100; 85610; 80076; 84484; 80053; 83880; 87804 ×2; 71045; 97161; 94760 ×3; 96374; 99285; J1650; J7030 ×4; G0378 ×2; 81003; 81015; 87086; J7500

== ENCOUNTER 2019-05-04 16:52 | Emergency (ER) | payer OTHER ==
[2019-05-04 17:53] LABS: Protime INR 2.82
[2019-05-04 17:54] LABS: Absolute Lymphocytes (CBC) 0.7 K/uL (0.7-4.9); Basophils % 1.8 % (0-1.3); Hematocrit 31.7 % (39.6-49.0); Lymphocytes % 15.1 % (15.3-44.8); MPV 7.9 fL (7.6-11.3); RBC Red Blood Cell Count 3.19 M/uL (4.33-5.43)
[2019-05-04 18:11] LABS: ALT/SGPT 18 U/L (12-78); AST/SGOT 18 U/L (15-37); Albumin 3.6 g/dL (3.4-5.0); Alkaline Phosphatase 79 U/L (45-117); BUN Blood Urea Nitrogen 34 mg/dL (7-18); Bicarbonate 22 mmol/L (21-32); Bilirubin Direct 0.2 mg/dL (0-0.2); Bilirubin Total 0.4 mg/dL (0.2-1.0); Glucose Level 95 mg/dL (74-106); Magnesium 2.3 mg/dL (1.8-2.4); NT PRO-BNP 429 pg/mL (<450); Potassium 4.1 mmol/L (3.5-5.1); Protein, Total 7.2 g/dL (6.4-8.2); Sodium Level 141 mmol/L (136-145); Troponin (Emerg Dept Use Only) < 0.02 ng/mL (0.0-0.045)
--- NOTE | 2019-05-04 18:13 | RAD REPORT ---
EXAM DESCRIPTION: RAD - Chest Single View - 05/04/2019 6:03 pm CLINICAL HISTORY: weakness Chest pain. COMPARISON: Chest Single View dated 01/05/2019; Chest Single View dated 01/04/2019; Chest Single View dated 09/18/2017; Chest Single View dated 02/29/2016 FINDINGS: Portable technique limits examination quality. The lungs are grossly clear. The heart is mildly enlarged in size. No displaced fractures.
[2019-05-04] MEDS ORDERED: NA CHLORIDE 0.9% 500 ML ONE (18:20)
[2019-05-04 18:34] LABS: Anisocytosis 2+; Blood Morphology Comment NOTED (NOT SEEN); Platelet Estimate ADEQ; Polychromasia SLIGHT; Target Cells 1+; Urine White Blood Cell Casts OK
--- NOTE | 2019-05-04 18:58 | ER ---
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 Pt reports nausea and dizziness. Pt denies LOC, denies head injury. Transition of care: patient was not received from another setting of care. Onset of symptoms was May 04, 2019. Risk Assessment: Do you want to hurt yourself or someone else? Patient reports no desire to harm self or others. Initial Sepsis Screen: Does the patient meet any 2 criteria? No. Patient's initial sepsis screen is negative. Does the patient have a suspected source of infection? No. Patient's initial sepsis screen is negative. Care prior to arrival: None. 17:05 Acuity: HERO 3 aa5 17:05 Method Of Arrival: Wheelchair aa5 18:12 Mechanism of Injury: Fall from standing position. Trauma event details: Injury occurred ph in the [facility], Injury occurred: at home. Injury occurred: May 04, 2019. Trauma Activation: Not Applicable Physician: ED Physician; Name: ; Notified At: ; Arrived At: Physician: General Surgeon; Name: ; Notified At: ; Arrived At: Physician: Radiology; Name: ; Notified At: ; Arrived At: Physician: Respiratory; Name: ; Notified At: ; Arrived At: Physician: Lab; Name: ; Notified At: ; Arrived At: Historical: - Allergies: 17:08 No Known Allergies; aa5 - Home Meds: 17:08 warfarin 2 mg Oral tab [Active]; prednisone 5 mg Oral tab [Active]; tamsulosin 0.4 mg aa5 Oral cp24 2 caps once daily [Active]; Methotrexate (Anti-Rheumatic) Oral 2.5 mg [Active]; lisinopril 40 mg Oral tab 1 tab once daily [Active]; levothyroxine 50 mcg tab 1 tab once daily [Active]; folic acid 1 mg Oral tab 1 tab once daily [Active]; fluticasone 50 mcg/actuation nasal spsn 1 spray 2 times per day [Active]; finasteride 5 mg Oral tab 2 tab once daily [Active]; atorvastatin 10 mg Oral tab 1 tab once daily [Active]; aspirin 81 mg Oral TbEC 1 tab once daily [Active]; - PMHx: 17:08 Anxiety; High Cholesterol; Hypertension; Hypothyroidism; aa5 - PSHx: 17:08 Appendectomy; spinal surgery "i had 13 spurs removed"; aa5 - Immunization history:: Pneumococcal vaccine is up to date, Flu vaccine is up to date. - Social history:: Smoking status: Patient/guardian denies using tobacco. - Immunization history: Last tetanus immunization: unknown. - Ebola Screening: : No symptoms or risks identified at this time. Screenin:11 Abuse screen: Denies threats or abuse. Denies injuries from another. Nutritional ph screening: No deficits noted. Tuberculosis screening: No symptoms or risk factors identified. Fall Risk Fall in past 12 months (25 points). No secondary diagnosis (0 pts). IV access (20 points). Ambulatory Aid- None/Bed Rest/Nurse Assist (0 pts). Gait- Weak (10 pts.). Mental Status- Oriented to own ability (0 pts). Total [place] Fall Scale indicates High Risk Score (45 or more points). Fall prevention measures have been instituted. Side Rails Up X 2 Placed Close to Nursing Station Frequent Obs/Assessments Occuring Family Present and informed to notify staff if the need to leave the bedside As available patient and family educated on Fall Prevention Program and Strategies. Primary Survey: 17:30 NO uncontrolled hemorrhage observed. A: A: The patient is alert. Airway: patent, No ph supplemental oxygen in use on arrival. Oral cavity: clear, Trachea midline. Breathing/Chest: Respiratory pattern: regular, Respiratory effort: spontaneous, unlabored, Breath sounds: clear, bilaterally. Chest inspection: symmetrical rise and fall of the chest. Circulation: Skin color: pink, Skin temperature: warm, dry. Disability Alert. Exposure/Environment: All clothing and personal items were removed. Forensic evidence collection is not deemed to be indicated at this time. Items placed in patient belonging bag. There is no evidence of uncontrolled external bleeding. No obvious injuries are noted at this time. 18:38 Reassessment Airway Airway Patent Breathing/Chest Respiratory pattern Regular ph Respiratory effort Spontaneous Unlabored Circulation Color Holters Crossing Temperature Warm Dry Disability Alert. Assessment: 17:30 General: Appears in no apparent distress. comfortable, well groomed, Behavior is calm, ph cooperative, appropriate for age. Pain: Denies pain. Neuro: Level of Consciousness is awake, alert, obeys commands, Oriented to person, place, time, situation. Cardiovascular: Reports fatigue, lightheadedness, shortness of breath, Denies chest pain, nausea, palpitations, Capillary refill < 3 seconds in bilateral fingers Patient's skin is warm and dry. Rhythm is regular. Respiratory: Reports shortness of breath at rest Airway is patent Respiratory effort is even, unlabored, Respiratory pattern is regular, symmetrical, Breath sounds are clear bilaterally. GI: Patient currently denies abdominal pain, nausea, vomiting. Derm: Skin is intact, Skin is pink, warm \\T\\ dry. Musculoskeletal: Circulation, motion, and sensation intact. Range of motion: intact in all extremities. 18:34 Reassessment: Patient appears in no apparent distress at this time. Patient and/or ph family updated on plan of care and expected duration. Pain level reassessed. Patient is alert, oriented x 3, equal unlabored respirations, skin warm/dry/pink. Pt resting quietly, reports that SOB is improving, Spo2 100% RA, pt requesting food, given sandwich and chips, tolerating well. 19:22 Reassessment: Patient appears in no apparent distress at this time. Patient and/or jd3 family updated on plan of care and expected duration. Pain level reassessed. Patient is alert, oriented x 3, equal unlabored respirations, skin warm/dry/pink. reported understanding of discharge instructions. Patient states feeling better. Vital Signs: 17:08 BP 141 / 70; Pulse 67; Resp 18 S; Temp 98.4(TE); Pulse Ox 100% on R/A; Weight 111.13 kg aa5 (R); Height 6 ft. 0 in. (182.88 cm) (R); Pain 0/10; 18:38 BP 146 / 66; Pulse 53; Resp 20; Pulse Ox 100% on R/A; ph 17:08 Body Mass Index 33.23 (111.13 kg, 182.88 cm) aa5 [place] Coma Score: 17:30 Eye Response: spontaneous(4). Verbal Response: oriented(5). Motor Response: obeys ph commands(6). Total: 15. 18:38 Eye Response: spontaneous(4). Verbal Response: oriented(5). Motor Response: obeys ph commands(6). Total: 15. Trauma Score (Adult): 17:30 Eye Response: spontaneous(1); Verbal Response: oriented(1); Motor Response: obeys ph commands(2); Systolic BP: > 89 mm Hg(4); Respiratory Rate: 10 to 29 per min(4); [place] Score: 15; Trauma Score: 12 18:38 Eye Response: spontaneous(1); Verbal Response: oriented(1); Motor Response: obeys ph commands(2); Systolic BP: > 89 mm Hg(4); Respiratory Rate: 10 to 29 per min(4); Charly Score: 15; Trauma Score: 12 ED Course: 16:54 Patient arrived in ED. as 17:07 Triage completed. aa5 17:08 Arm band placed on. aa5 17:12 Martin Singh MD is Attending Physician. kdr 17:28 Elizabeth Morales, KEHINDE is Primary Nurse. ph 17:38 EKG done, by process control technician. reviewed by Martin Singh MD. Initial lab(s) drawn, by mo, sent jb1 to lab. Inserted saline lock: 22 gauge in right antecubital area, using aseptic technique. Blood collected. 18:04 XRAY Chest (1 view) In Process Unspecified. EDMS 18:11 Patient has correct armband on for positive identification. Placed in gown. Bed in low ph position. Call light in reach. Side rails up X2. cardiac monitor on. Pulse ox on. NIBP on. Door closed. Noise minimized. Warm blanket given. Head of bed elevated. 18:11 Patient maintains SpO2 saturation greater than 95% on room air. Thermoregulation: warm ph blanket given to patient. 18:38 No provider procedures requiring assistance completed. ph 19:21 IV discontinued, intact, bleeding controlled, No redness/swelling at site. Pressure jd3 dressing applied. Administered Medications: 18:00 Drug: NS 0.9% 500 ml Route: IV; Rate: bolus; Site: right antecubital; ph 19:22 Follow up: Response: No adverse reaction; IV Status: Completed infusion; IV Intake: jd3 500ml Intake: 18:38 IV: 500ml (IV Fluid); Total: 500ml. ph 19:22 IV: 500ml; Total: 1000ml. jd3 Outcome: 18:59 Discharge ordered by . kdr 19:21 Discharged to home via wheelchair, with family. jd3 19:21 Condition: stable 19:21 Discharge instructions given to patient, family, Instructed on discharge instructions, follow up and referral plans. Demonstrated understanding of instructions, follow-up care. 19:22 Patient's length of stay in the Emergency Department was greater than 2 hours. waiting jd3 fo results.Patient's length of stay extended due to 19:23 Patient left the ED. jd3 Signatures: Dispatcher [employer] Bairon Ni Kevin, MD MD kdr Martinez, Amelia as Calderon, Audri, KEHINDE RN mary5 Elizabeth Morales RN RN Warren Archibald RN RN jd3
--- NOTE | 2019-05-04 18:59 | EDPHYS ---
Physician Documentation [facility] Name: Paul Iglesias Age: 83 yrs Sex: Male : 1935 Arrival Date: 05/04/2019 Time: 16:54 Bed 8 Private MD: ED Physician Martin Singh HPI: 05/04 18:37 This 83 yrs old Male presents to ER via Wheelchair with complaints of Fall kdr Injury, Weakness. 18:37 Details of fall: The patient fell from an upright position, while standing. Onset: The kdr symptoms/episode began/occurred suddenly, just prior to arrival. 18:55 Associated injuries: The patient sustained no obvious injury. Severity of symptoms: At kdr their worst the symptoms were mild, moderate, in the emergency department the symptoms are unchanged. The patient has experienced similar episodes in the past, a few times. The patient has not recently seen a physician. Historical: - Allergies: 17:08 No Known Allergies; aa5 - Home Meds: 17:08 warfarin 2 mg Oral tab [Active]; prednisone 5 mg Oral tab [Active]; tamsulosin 0.4 mg aa5 Oral cp24 2 caps once daily [Active]; Methotrexate (Anti-Rheumatic) Oral 2.5 mg [Active]; lisinopril 40 mg Oral tab 1 tab once daily [Active]; levothyroxine 50 mcg tab 1 tab once daily [Active]; folic acid 1 mg Oral tab 1 tab once daily [Active]; fluticasone 50 mcg/actuation nasal spsn 1 spray 2 times per day [Active]; finasteride 5 mg Oral tab 2 tab once daily [Active]; atorvastatin 10 mg Oral tab 1 tab once daily [Active]; aspirin 81 mg Oral TbEC 1 tab once daily [Active]; - PMHx: 17:08 Anxiety; High Cholesterol; Hypertension; Hypothyroidism; aa5 - PSHx: 17:08 Appendectomy; spinal surgery "i had 13 spurs removed"; aa5 - Immunization history:: Pneumococcal vaccine is up to date, Flu vaccine is up to date. - Social history:: Smoking status: Patient/guardian denies using tobacco. - Immunization history: Last tetanus immunization: unknown. - Ebola Screening: : No symptoms or risks identified at this time. ROS: 18:55 Constitutional: Negative for fever, chills, and weight loss, Eyes: Negative for injury, kdr pain, redness, and discharge, ENT: Negative for injury, pain, and discharge, Neck: Negative for injury, pain, and swelling, Cardiovascular: Negative for chest pain, palpitations, and edema, Respiratory: Negative for shortness of breath, cough, wheezing, and pleuritic chest pain, Abdomen/GI: Negative for abdominal pain, nausea, vomiting, diarrhea, and constipation, Back: Negative for injury and pain, : Negative for injury, bleeding, discharge, and swelling, MS/Extremity: Negative for injury and deformity, Skin: Negative for injury, rash, and discoloration, Psych: Negative for depression, anxiety, suicide ideation, homicidal ideation, and hallucinations, Allergy/Immunology: Negative for hives, rash, and allergies, Endocrine: Negative for neck swelling, polydipsia, polyuria, polyphagia, and marked weight changes, Hematologic/Lymphatic: Negative for swollen nodes, abnormal bleeding, and unusual bruising. 18:55 Neuro: Positive for weakness. Exam: 18:55 Constitutional: This is a well developed, well nourished patient who is awake, alert, kdr and in no acute distress. Head/Face: Normocephalic, atraumatic. Eyes: Pupils equal round and reactive to light, extra-ocular motions intact. Lids and lashes normal. Conjunctiva and sclera are non-icteric and not injected. Cornea within normal limits. Periorbital areas with no swelling, redness, or edema. Neck: Trachea midline, no thyromegaly or masses palpated, and no cervical lymphadenopathy. Supple, full range of motion without nuchal rigidity, or vertebral point tenderness. No Meningismus. Chest/axilla: Normal chest wall appearance and motion. Nontender with no deformity. No lesions are appreciated. Cardiovascular: Regular rate and rhythm with a normal S1 and S2. No gallops, murmurs, or rubs. Normal PMI, no JVD. No pulse deficits. Respiratory: Lungs have equal breath sounds bilaterally, clear to auscultation and percussion. No rales, rhonchi or wheezes noted. No increased work of breathing, no retractions or nasal flaring. Abdomen/GI: Soft, non-tender, with normal bowel sounds. No distension or tympany. No guarding or rebound. No evidence of tenderness throughout. Back: No spinal tenderness. No costovertebral tenderness. Full range of motion. Skin: Warm, dry with normal turgor. Normal color with no rashes, no lesions, and no evidence of cellulitis. MS/ Extremity: Pulses equal, no cyanosis. Neurovascular intact. Full, normal range of motion. Neuro: Awake and alert, GCS 15, oriented to person, place, time, and situation. Cranial nerves II-XII grossly intact. Motor strength 5/5 in all extremities. Sensory grossly intact. Cerebellar exam normal. Normal gait. Psych: Awake, alert, with orientation to person, place and time. Behavior, mood, and affect are within normal limits. Vital Signs: 17:08 BP 141 / 70; Pulse 67; Resp 18 S; Temp 98.4(TE); Pulse Ox 100% on R/A; Weight 111.13 kg aa5 (R); Height 6 ft. 0 in. (182.88 cm) (R); Pain 0/10; 18:38 BP 146 / 66; Pulse 53; Resp 20; Pulse Ox 100% on R/A; ph 17:08 Body Mass Index 33.23 (111.13 kg, 182.88 cm) aa5 Charly Coma Score: 17:30 Eye Response: spontaneous(4). Verbal Response: oriented(5). Motor Response: obeys ph commands(6). Total: 15. 18:38 Eye Response: spontaneous(4). Verbal Response: oriented(5). Motor Response: obeys ph commands(6). Total: 15. Trauma Score (Adult): 17:30 Eye Response: spontaneous(1); Verbal Response: oriented(1); Motor Response: obeys ph commands(2); Systolic BP: > 89 mm Hg(4); Respiratory Rate: 10 to 29 per min(4); [place] Score: 15; Trauma Score: 12 18:38 Eye Response: spontaneous(1); Verbal Response: oriented(1); Motor Response: obeys ph commands(2); Systolic BP: > 89 mm Hg(4); Respiratory Rate: 10 to 29 per min(4); Charly Score: 15; Trauma Score: 12 MDM: 18:55 Data reviewed: vital signs, nurses notes, lab test result(s), radiologic studies. kdr Counseling: I had a detailed discussion with the patient and/or guardian regarding: the historical points, exam findings, and any diagnostic results supporting the discharge/admit diagnosis, lab results, radiology results, the need for outpatient follow up. 18:59 Patient medically screened. kdr 05/04 17:24 Order name: Basic Metabolic Panel; Complete Time: 18:37 kdr 08 17:24 Order name: CBC with Diff; Complete Time: 18:37 kdr 05/04 17:24 Order name: LFT's; Complete Time: 18:37 kdr 05/04 17:24 Order name: Magnesium; Complete Time: 18:37 kdr 08 17:24 Order name: NT PRO-BNP; Complete Time: 18:37 kdr 05/04 17:24 Order name: PT-INR; Complete Time: 18:37 kdr 05/04 17:24 Order name: Troponin (emerg Dept Use Only); Complete Time: 18:37 kdr 05/04 17:24 Order name: XRAY Chest (1 view); Complete Time: 18:37 kdr 05/04 17:24 Order name: EKG; Complete Time: 17:26 kdr 05/04 17:24 Order name: Cardiac monitoring; Complete Time: 17:38 kdr 05/04 17:24 Order name: EKG - Nurse/Tech; Complete Time: 17:38 kdr 05/04 17:24 Order name: IV Saline Lock; Complete Time: 17:38 kdr 05/04 17:59 Order name: CBC Smear Scan; Complete Time: 18:37 EDMS 05/04 17:24 Order name: Labs collected and sent; Complete Time: 17:38 kdr 05/04 17:24 Order name: O2 Per Protocol; Complete Time: 17:38 kdr 05/04 17:24 Order name: O2 Sat Monitoring; Complete Time: 17:38 kdr Administered Medications: 18:00 Drug: NS 0.9% 500 ml Route: IV; Rate: bolus; Site: right antecubital; ph 19:22 Follow up: Response: No adverse reaction; IV Status: Completed infusion; IV Intake: jd3 500ml Disposition: 05/04/19 18:59 Discharged to Home. Impression: Weakness, Other slipping, tripping and stumbling and falls. - Condition is Stable. - Discharge Instructions: Fall Prevention in the Home, [id number], Weakness, [id number]. - Medication Reconciliation Form, Thank You Letter form. - Follow up: Private Physician; When: 2 - 3 days; Reason: If symptoms return, Further diagnostic work-up, Recheck today's complaints, Continuance of care, Re-evaluation by your physician. - Problem is new. - Symptoms have improved. Signatures: Dispatcher [employer] EDMS Martin Singh MD MD kdr Angelica Durán RN RN aa5 Elizabeth Morales RN RN Warren Romero RN RN jd3 Corrections: (The following items were deleted from the chart) 19:23 18:59 05/04/2019 18:59 Discharged to Home. Impression: Weakness; Other slipping, jd3 tripping and stumbling and falls. Condition is Stable. Forms are Medication Reconciliation Form, Thank You Letter, Antibiotic Education, Prescription Opioid Use. Follow up: Private Physician; When: 2 - 3 days; Reason: If symptoms return, Further diagnostic work-up, Recheck today's complaints, Continuance of care, Re-evaluation by your physician. Problem is new. Symptoms have improved. kdr
[2019-05-04 20:19] VITALS: TEMP 98.4; O2SAT 100
[2019-05-04 20:21] VITALS: BP 146/66
--- NOTE | 2019-05-05 07:37 | EKG ---
Test Date: 2019-05-04 Test Time: 17:35:28 [employer] Coordinator: MCKENNA MEASUREMENT RESULTS: Intervals: Rate: 56 MD: 158 QRSD: 142 QT: 502 QTc: 484 Clifford: P: -16 MD: 158 QRS: -27 T: -30 INTERPRETIVE STATEMENTS: Sinus bradycardia Right bundle branch block T wave abnormality, consider lateral ischemia Abnormal ECG Compared to ECG 01/05/2019 13:14:55 T-wave abnormality now present Possible ischemia now present Sinus rhythm no longer present Left-axis deviation no longer present Electronically Signed On 05-05-19 07:36:55 CDT by Jon Graves
== END 2019-05-04 19:23 | disposition home or self-care (01) ==
LOC: ER 16:52
DX: R53.1 Weakness (principal); W01.0XXA Fall on same level from slipping, tripping and stumbling without subsequent striking against object, initial encounter; Y93.89 Activity, other specified; Y92.9 Unspecified place or not applicable; Z79.01 Long term (current) use of anticoagulants; Z79.82 Long term (current) use of aspirin; I10 Essential (primary) hypertension; E78.00 Pure hypercholesterolemia, unspecified; F41.9 Anxiety disorder, unspecified; E03.9 Hypothyroidism, unspecified
CPT/HCPCS: 36415; 71045; 80048; 80076; 83735; 83880; 84484; 85025; 85610; 93005; 96360; 99285

== ENCOUNTER 2019-05-26 16:04 | Emergency (ER) | payer OTHER ==
[2019-05-26] MEDS ORDERED: LORazepam 2 MG/ML VIAL ONE (16:58)
[2019-05-26 17:07] LABS: Protime INR 1.11
[2019-05-26 17:14] LABS: Absolute Lymphocytes (CBC) 0.9 K/uL (0.7-4.9); Basophils % 1.1 % (0-1.3); Hematocrit 32.8 % (39.6-49.0); MPV 8.2 fL (7.6-11.3); RBC Red Blood Cell Count 3.29 M/uL (4.33-5.43)
[2019-05-26 17:21] LABS: ALT/SGPT 20 U/L (12-78); AST/SGOT 18 U/L (15-37); Albumin 3.7 g/dL (3.4-5.0); Alkaline Phosphatase 78 U/L (45-117); BUN Blood Urea Nitrogen 28 mg/dL (7-18); Bicarbonate 22 mmol/L (21-32); Bilirubin Direct 0.2 mg/dL (0-0.2); Bilirubin Total 0.6 mg/dL (0.2-1.0); Glucose Level 96 mg/dL (74-106); Lipase 74 U/L (73-393); Magnesium 2.2 mg/dL (1.8-2.4); NT PRO-BNP 596 pg/mL (<450); Potassium 4.4 mmol/L (3.5-5.1); Protein, Total 7.5 g/dL (6.4-8.2); Sodium Level 145 mmol/L (136-145); Troponin (Emerg Dept Use Only) < 0.02 ng/mL (0.0-0.045)
[2019-05-26 18:29] LABS: Anisocytosis 2+; Blood Morphology Comment NOTED (NOT SEEN); Ovalocytes SLIGHT; Platelet Estimate ADEQ; Poikilocytosis 1+; Target Cells FEW; Urine White Blood Cell Casts OK
--- NOTE | 2019-05-26 18:36 | ER ---
Nurse's Notes [facility] Name: Paul Iglesias Age: 83 yrs Sex: Male : 1935 Arrival Date: 05/26/2019 Time: 16:07 Bed 8 Private MD: Eduardo Chew Diagnosis: Dizziness and giddiness;Anxiety disorder, unspecified;Unspecified kidney failure Presentation: 05/26 16:13 Presenting complaint: Patient states: I have been feeling funny since 1400 with my feet la1 and hands feeling like they are going numb. I also feels like I cannot keep up with my breathing. Transition of care: patient was not received from another setting of care. Onset of symptoms was May 26, 2019. Risk Assessment: Do you want to hurt yourself or someone else? Patient reports no desire to harm self or others. Initial Sepsis Screen: Does the patient meet any 2 criteria? No. Patient's initial sepsis screen is negative. Does the patient have a suspected source of infection? No. Patient's initial sepsis screen is negative. Care prior to arrival: None. 16:13 Method Of Arrival: Ambulatory la1 16:13 Acuity: HERO 3 la1 Historical: - Allergies: 16:16 No Known Allergies; la1 - PMHx: 16:16 Anxiety; High Cholesterol; Hypertension; Hypothyroidism; la1 - Immunization history:: Adult Immunizations up to date. - Social history:: Smoking status: Patient/guardian denies using tobacco. - Ebola Screening: : No symptoms or risks identified at this time. Screenin:10 Abuse screen: Denies threats or abuse. Denies injuries from another. Nutritional sg screening: No deficits noted. Tuberculosis screening: No symptoms or risk factors identified. Never had TB. Fall Risk None identified. Assessment: 17:10 General: Appears in no apparent distress. well groomed, well developed, well nourished, sg Behavior is calm, cooperative, appropriate for age. Pain: Denies pain. Neuro: Level of Consciousness is awake, alert, obeys commands, Oriented to person, place, time, Flat Folding Machine Operator are equal bilaterally Moves all extremities. Full function Gait is steady, Speech is normal, Facial symmetry appears normal, Reports numbness in right hand, left hand, right foot and left foot for several months, intermittent. Cardiovascular: Heart tones S1 S2 present Capillary refill is brisk in bilateral fingers Patient's skin is warm and dry. Chest pain is denied. Respiratory: Reports shortness of breath at rest Airway is patent Respiratory effort is even, unlabored, Breath sounds are clear bilaterally. GI: Abdomen is round non-distended, Bowel sounds present X 4 quads. : No signs and/or symptoms were reported regarding the genitourinary system. EENT: No signs and/or symptoms were reported regarding the EENT system. Derm: Skin is pink, warm \T\ dry. Musculoskeletal: Circulation, motion, and sensation intact. Range of motion: intact in all extremities. Vital Signs: 16:15 BP 147 / 72; Pulse 62; Resp 16; Temp 97.5; Pulse Ox 100% on R/A; Weight 113.4 kg; la1 Height 6 ft. 0 in. (182.88 cm); 17:34 BP 123 / 73; Pulse 65; Resp 17; Temp 97.9; Pulse Ox 98% on R/A; sg 16:15 Body Mass Index 33.91 (113.40 kg, 182.88 cm) la1 ED Course: 16:07 Patient arrived in ED. mr 16:07 Eduardo Chew DO is Private Physician. mr 16:12 Daryl Lal MD is Attending Physician. kenn 16:15 Triage completed. la1 16:16 Arm band placed on right wrist. la1 17:00 Initial lab(s) drawn, by me, sent to lab. Inserted saline lock: 20 gauge in right sg antecubital area, using aseptic technique. Blood collected. 17:06 XRAY Chest (1 view) In Process Unspecified. EDMS 17:21 Dennis Velázquez, RN is Primary Nurse. sg 17:25 Patient has correct armband on for positive identification. Bed in low position. Side sg rails up X2. labelling machine operator on. Pulse ox on. NIBP on. Warm blanket given. Head of bed elevated. 18:35 Eduardo Chew DO is Referral Physician. kenn 18:50 No provider procedures requiring assistance completed. IV discontinued, intact, sg bleeding controlled, No redness/swelling at site. Pressure dressing applied. Administered Medications: 17:04 Drug: Ativan 0.5 mg Route: IVP; Site: right antecubital; hb 18:15 Follow up: Response: No adverse reaction la1 Outcome: 18:35 Discharge ordered by . kenn 18:50 Discharged to home via wheelchair, with family. claudia 18:50 Condition: good 18:50 Discharge instructions given to patient, Instructed on discharge instructions, follow up and referral plans. medication usage, safety practices, Demonstrated understanding of instructions, follow-up care, medications, Prescriptions given X 1. 18:56 Patient left the ED. ms Signatures: Dispatcher [employer] EDMS Dennis Velázquez, RN RN Daryl Hart MD MD cha Rivera, Mary mr Ronit Landa ms Kb Guy RN RN la1 Heidi Stuart RN RN
--- NOTE | 2019-05-26 18:37 | EDPHYS ---
Physician Documentation [facility] Name: Paul Iglesias Age: 83 yrs Sex: Male : 1935 Arrival Date: 05/26/2019 Time: 16:07 Bed 8 Private MD: Eduardo Chew ED Physician Daryl Lal HPI: 05/26 16:47 This 83 yrs old Male presents to ER via Ambulatory with complaints of kenn Dizziness, Breathing Difficulty. 16:47 The patient presents with dizziness, generalized weakness. kenn Historical: - Allergies: 16:16 No Known Allergies; la1 - PMHx: 16:16 Anxiety; High Cholesterol; Hypertension; Hypothyroidism; la1 - Immunization history:: Adult Immunizations up to date. - Social history:: Smoking status: Patient/guardian denies using tobacco. - Ebola Screening: : No symptoms or risks identified at this time. ROS: 16:47 Constitutional: Negative for fever, chills, and weight loss, Eyes: Negative for injury, kenn pain, redness, and discharge, ENT: Negative for injury, pain, and discharge, Neck: Negative for injury, pain, and swelling, Cardiovascular: Negative for chest pain, palpitations, and edema, Abdomen/GI: Negative for abdominal pain, nausea, vomiting, diarrhea, and constipation, Back: Negative for injury and pain, : Negative for injury, bleeding, discharge, and swelling, Skin: Negative for injury, rash, and discoloration, Neuro: Negative for headache, weakness, numbness, tingling, and seizure, Psych: Negative for depression, anxiety, suicide ideation, homicidal ideation, and hallucinations, Allergy/Immunology: Negative for hives, rash, and allergies, Endocrine: Negative for neck swelling, polydipsia, polyuria, polyphagia, and marked weight changes, Hematologic/Lymphatic: Negative for swollen nodes, abnormal bleeding, and unusual bruising. 16:47 Respiratory: Positive for shortness of breath. 16:47 MS/extremity: Positive for swelling. Exam: 16:47 Constitutional: This is a well developed, well nourished patient who is awake, alert, kenn and in no acute distress. Head/Face: Normocephalic, atraumatic. Eyes: Pupils equal round and reactive to light, extra-ocular motions intact. Lids and lashes normal. Conjunctiva and sclera are non-icteric and not injected. Cornea within normal limits. Periorbital areas with no swelling, redness, or edema. ENT: Nares patent. No nasal discharge, no septal abnormalities noted. Tympanic membranes are normal and external auditory canals are clear. Oropharynx with no redness, swelling, or masses, exudates, or evidence of obstruction, uvula midline. Mucous membranes moist. Neck: Trachea midline, no thyromegaly or masses palpated, and no cervical lymphadenopathy. Supple, full range of motion without nuchal rigidity, or vertebral point tenderness. No Meningismus. Chest/axilla: Normal chest wall appearance and motion. Nontender with no deformity. No lesions are appreciated. Cardiovascular: Regular rate and rhythm with a normal S1 and S2. No gallops, murmurs, or rubs. Normal PMI, no JVD. No pulse deficits. Respiratory: Lungs have equal breath sounds bilaterally, clear to auscultation and percussion. No rales, rhonchi or wheezes noted. No increased work of breathing, no retractions or nasal flaring. Abdomen/GI: Soft, non-tender, with normal bowel sounds. No distension or tympany. No guarding or rebound. No evidence of tenderness throughout. Back: No spinal tenderness. No costovertebral tenderness. Full range of motion. Male : Normal genitalia with no discharge or lesions. Skin: Warm, dry with normal turgor. Normal color with no rashes, no lesions, and no evidence of cellulitis. Neuro: Awake and alert, GCS 15, oriented to person, place, time, and situation. Cranial nerves II-XII grossly intact. Motor strength 5/5 in all extremities. Sensory grossly intact. Cerebellar exam normal. Normal gait. Psych: Awake, alert, with orientation to person, place and time. Behavior, mood, and affect are within normal limits. 16:47 Musculoskeletal/extremity: ROM: no acute changes, intact in all extremities, full active range of motion, full passive range of motion, Circulation is intact in all extremities. DVT Exam: no tenderness, negative Homans' sign noted on exam, no appreciated bluish discoloration, no erythema, no increased warmth, swelling. Vital Signs: 16:15 BP 147 / 72; Pulse 62; Resp 16; Temp 97.5; Pulse Ox 100% on R/A; Weight 113.4 kg; la1 Height 6 ft. 0 in. (182.88 cm); 17:34 BP 123 / 73; Pulse 65; Resp 17; Temp 97.9; Pulse Ox 98% on R/A; sg 16:15 Body Mass Index 33.91 (113.40 kg, 182.88 cm) [facility] MDM: 16:12 Patient medically screened. [facility] 17:00 Data reviewed: vital signs, nurses notes, lab test result(s), EKG, radiologic studies, [facility] plain films. 05/26 16:46 Order name: Basic Metabolic Panel; Complete Time: 17:34 [facility] 05/26 16:46 Order name: CBC with Diff [facility] 05/26 16:46 Order name: LFT's; Complete Time: 17:34 [facility] 05/26 16:46 Order name: Magnesium; Complete Time: 17:34 [facility] 05/26 16:46 Order name: NT PRO-BNP; Complete Time: 17:34 [facility] 05/26 16:46 Order name: PT-INR; Complete Time: 17:34 [facility] 05/26 16:46 Order name: Troponin (emerg Dept Use Only); Complete Time: 17:34 [facility] 05/26 16:46 Order name: XRAY Chest (1 view) [facility] 05/26 16:46 Order name: EKG; Complete Time: 16:47 [facility] 05/26 16:46 Order name: Cardiac monitoring; Complete Time: 16:55 [facility] 05/26 16:46 Order name: Lipase; Complete Time: 17:34 [facility] 05/26 16:46 Order name: Urine Culture [facility] 05/26 18:29 Order name: CBC Smear Scan [facility] 05/26 16:46 Order name: EKG - Nurse/Tech; Complete Time: 16:55 [facility] 05/26 16:46 Order name: IV Saline Lock; Complete Time: 16:55 [facility] 05/26 16:46 Order name: Labs collected and sent; Complete Time: 16:55 [facility] 05/26 16:46 Order name: O2 Per Protocol; Complete Time: 16:55 [facility] 05/26 16:46 Order name: O2 Sat Monitoring; Complete Time: 16:55 [facility] Administered Medications: 17:04 Drug: Ativan 0.5 mg Route: IVP; Site: right antecubital; hb 18:15 Follow up: Response: No adverse reaction [facility] Disposition: 05/26/19 18:35 Discharged to Home. Impression: Dizziness and giddiness, Anxiety disorder, unspecified, Unspecified kidney failure. - Condition is Stable. - Discharge Instructions: Dizziness, Chronic Kidney Disease, Adult, [id number], Generalized Anxiety Disorder, Dizziness, [id number]. - Prescriptions for Xanax 0.5 mg Oral Tablet - take 1 tablet by ORAL route every 8 hours As needed; 20 tablet. - Medication Reconciliation Form, Thank You Letter, Antibiotic Education, Prescription Opioid Use form. - Follow up: Eduardo Chew; When: 2 - 3 days; Reason: Recheck today's complaints, Continuance of care, Re-evaluation by your physician. - Problem is new. - Symptoms have improved. Signatures: Dispatcher [employer] EDDaryl Lyle MD MD cha Solis, Maria ms Attema, Kb, RN RN la1 Heidi Stuart RN RN hb Corrections: (The following items were deleted from the chart) 18:56 18:35 05/26/2019 18:35 Discharged to Home. Impression: Dizziness and giddiness; Anxiety ms disorder, unspecified; Unspecified kidney failure. Condition is Stable. Discharge Instructions: Dizziness, Chronic Kidney Disease, Adult, [id number], Generalized Anxiety Disorder, Dizziness, [id number]. Prescriptions for Xanax 0.5 mg Oral Tablet - take 1 tablet by ORAL route every 8 hours As needed; 20 tablet. and Forms are Medication Reconciliation Form, Thank You Letter, Antibiotic Education, Prescription Opioid Use. Follow up: Eduardo Chew; When: 2 - 3 days; Reason: Recheck today's complaints, Continuance of care, Re-evaluation by your physician. Problem is new. Symptoms have improved. kenn
[2019-05-26 19:15] LABS: Urine Blood TRACE (NEG); Urine Glucose NEGATIVE (NEG); Urine Protein NEGATIVE (NEG); Urine Specific Gravity 1.015 (1.005-1.030)
[2019-05-26 19:18] VITALS: BP 123/73; TEMP 97.9; O2SAT 98
--- NOTE | 2019-05-26 20:09 | RAD REPORT ---
EXAM DESCRIPTION: [place] Single View05/26/2019 5:05 pm CLINICAL HISTORY: sob COMPARISON: May 04, 2019 FINDINGS: The lungs appear clear of acute infiltrate. The heart is mildly enlarged IMPRESSION: No acute abnormalities displayed
--- NOTE | 2019-05-27 08:07 | EKG ---
Test Date: 2019-05-26 Test Time: 16:47:16 [employer]p Litigation Paralegal: SWG MEASUREMENT RESULTS: Intervals: Rate: 62 MS: 158 QRSD: 144 QT: 502 QTc: 509 [place]: P: 21 MS: 158 QRS: -41 T: 18 INTERPRETIVE STATEMENTS: Normal sinus rhythm Left axis deviation Right bundle branch block T wave abnormality, consider lateral ischemia Abnormal ECG Compared to ECG 05/04/2019 17:35:28 Left-axis deviation now present Sinus bradycardia no longer present T-wave abnormality still present Possible ischemia still present Electronically Signed On 05-27-19 08:06:49 CDT by Isidro Arevalo
== END 2019-05-26 18:56 | disposition home or self-care (01) ==
LOC: ER 16:04
DX: F41.9 Anxiety disorder, unspecified (principal); N19 Unspecified kidney failure
CPT/HCPCS: 36415; 71045; 80048; 80076; 81003; 83690; 83735; 83880; 84484; 85025; 85610; 87086; 87088; 93005; 96374; 99284

== ENCOUNTER 2020-10-16 08:10 | Day surgery (SDC) | payer OTHER ==
[2020-10-16 09:00] VITALS: BMI 33.9
[2020-10-16 09:01] LABS: Hematocrit 21.1 % (39.6-49.0)
[2020-10-16] MEDS ORDERED: EPOETIN ALFA-EPBX 10,000 UNIT/ML VIAL ONE (09:34)
[2020-10-16] MEDS ORDERED: NA CHLORIDE 0.9% 500 ML ONE (11:33)
[2020-10-16] MEDS ORDERED: DIPHENHYDRAMINE 50 MG/ML VIAL ONE (11:34)
[2020-10-16] MEDS ORDERED: ACETAMINOPHEN 325 MG TABLET ONE (11:34)
[2020-10-16 17:34] VITALS: BP 158/58; TEMP 97.4; O2SAT 98
[2020-10-16 18:16] LABS: Basophils % 1.5 % (0-1.3); Hematocrit 25.7 % (39.6-49.0); Lymphocytes % 22.4 % (15.3-44.8); MPV 8.9 fL (7.6-11.3); RBC Red Blood Cell Count 2.59 M/uL (4.33-5.43)
[2020-10-16 18:49] LABS: Ferritin 448.8 ng/mL (26-388); Folic Acid, (Folate) 3.7 ng/mL (3.1-17.5)
[2020-10-16 21:17] LABS: Platelet Estimate DECR; Platelets, Giant FEW
[2020-10-16 21:18] LABS: Anisocytosis 3+; Blood Morphology Comment NOTED (NOT SEEN); Elliptocytes 2+; Hypochromasia 1+; Polychromasia 2+; Teardrop Cell 1+
== END 2020-10-16 18:01 | disposition home or self-care (01) ==
LOC: DS 08:10
PROVIDERS: ATTEND Internal Medicine Nephrology
DX: N18.9 Chronic kidney disease, unspecified (principal); D63.1 Anemia in chronic kidney disease
CPT/HCPCS: 85025; 36415; 86900; 86850; 86901; 85018; 85014; 82728; 82746; 82607; 83540; 84466; 36430; 96372; J1200; Q5106; P9016 ×2; J7050